=== PATIENT | male | born 1955 | race Caucasian/White ===

== ENCOUNTER 2020-04-23 09:31 | Observation (INO) | payer OTHER ==
[~2020-04-23] VITALS: Ht 175.3 cm; Wt 137.0 kg
--- NOTE | 2020-04-23 09:50 | NUR ---
PT AMBULATED BACK TO ROOM WITHOUT DIFFICULTY.
--- NOTE | 2020-04-23 09:53 | NUR ---
PATIENT WALKED BACK FROM TRIAGE WITH CHIEF C/O LEFT ARM PAIN X3-4 DAYS. PATIENT ALSO REPORTS GENERALIZED BODY ACHES X3-4 DAYS, NAUSEA X1 DAYS, AND TWO EPISODES OF CHILLS. PATIENT DENIES VOMITING AND DIARRHEA, DENIES CHEST PAIN AND DENIES SOB. EZRA NELSON, CALL LIGHT WITHIN REACH.
--- NOTE | 2020-04-23 10:00 | NUR ---
ERMD AT BEDSIDE FOR EVALUATION.
--- NOTE | 2020-04-23 11:07 | NUR ---
REPORT GIVEN TO GAVIN PATEL FOR TRANSFER OF PATIENT CARE.
--- NOTE | 2020-04-23 11:20 | NUR ---
RECEIVED REPORT FROM GAVIN CROUCH. PT RESTING ON [facility]. NADN. SCOTTS. PT CHART REVIEWED AND PLACED FOR RECHECK.
[2020-04-23] MEDS ORDERED: OXYcodone/APAP 5/325MG TABLET ONE (11:54)
[2020-04-23] MEDS ORDERED: OXYcodone/APAP 5/325MG TABLET PO ONE (12:00)
[2020-04-23] MEDS ORDERED: LOVA40TA2 PO (12:06)
[2020-04-23] MEDS ORDERED: ASPI-963 PO (12:06)
[2020-04-23] MEDS ORDERED: LISI1TAB20 PO (12:06)
[2020-04-23 12:15] LABS: BASOPHILS % (AUTO) 0 % (0-1); EOSINOPHILS % (AUTO) 1 % (1-7); LYMPHOCYTES % (AUTO) 19 % (22-44); MEAN CORPUSCULAR HEMOGLOBIN 29.6 pg (27.5-34.5); MEAN CORPUSCULAR HGB CONC 34.6 g/dL (33.2-36.2); MEAN PLATELET VOLUME 7.4 fL (7.4-10.4); MONOCYTES % (AUTO) 13 % (2-9); NEUTROPHILS % (AUTO) 67 % (42-75); PLATELET COUNT 225 x10^3/uL (130-400); RED BLOOD COUNT 5.25 x10^6/uL (4.38-5.82); RED CELL DISTRIBUTION WIDTH 13.9 % (9.4-14.8)
[2020-04-23 12:20] LABS: MD NO
[2020-04-23 12:30] LABS: ALBUMIN 3.7 g/dL (3.4-5.0); ANION GAP 9 mmol/L (5-15); CALCIUM 9.4 mg/dL (8.5-10.1); CHLORIDE 104 mmol/L (98-107)
[2020-04-23 12:33] LABS: ALANINE AMINOTRANSFERASE 22 U/L (12-78); ALKALINE PHOSPHATASE 892 U/L (45-117); BILIRUBIN,TOTAL 1.3 mg/dL (0.2-1.0); CREATININE 1.26 mg/dL (0.7-1.3); TOTAL PROTEIN 7.9 g/dL (6.4-8.2)
[2020-04-23] MEDS ORDERED: SODIUM CHLORIDE FLUSH 10ML SYR IVF PRN (13:00)
[2020-04-23] MEDS ORDERED: MORPHINE SULFATE 4 MG/ML, 1ML IVPush PRN (13:00)
[2020-04-23] MEDS ORDERED: ONDANSETRON 2MG/ML, 2ML IVPush PRN ×2 (13:00→14:30)
--- NOTE | 2020-04-23 13:07 | NUR ---
PT RESTING ON GURNEY. NADN. MUNGUIA.
--- NOTE | 2020-04-23 13:14 | NUR ---
REPORT GIVEN TO GAVIN MARQUEZ. ALL QUESTIONS ANSWERED. AWAITING PT TRANSPORT.
[2020-04-23] MEDS ORDERED: METHOCARBAMOL 500 MG TABLET PO PRN (14:30)
[2020-04-23] MEDS ORDERED: ACETAMINOPHEN 325 MG TABLET PO PRN (14:30)
[2020-04-23] MEDS ORDERED: GABAPENTIN 300 MG CAPSULE PO PRN (14:30)
[2020-04-23] MEDS ORDERED: LIDODERM 5% PATCH TD PRN (14:30)
[2020-04-23] MEDS ORDERED: ONDANSETRON ODT 4 MG PO PRN (14:30)
[2020-04-23 14:40] VITALS: BP 121/74
[2020-04-23] MEDS ORDERED: NALOXONE 1 MG/ML, 2ML ONE (14:48)
[2020-04-23] MEDS ORDERED: MIDAZOLAM 1 MG/ML, 5ML ONE (14:48)
[2020-04-23] MEDS ORDERED: FLUMAZENIL 0.1 MG/1 ML, 5ML ONE (14:48)
[2020-04-23] MEDS ORDERED: FENTANYL PF 100 MCG/2ML ONE (14:48)
[2020-04-23] MEDS: morphine SULFATE 10 MG/ML, 1ML IVPush PRN ×2 (18:21→23:42)
[2020-04-23 19:44] VITALS: BP 105/67
[2020-04-23] MEDS: OXYcodone IR 5MG TABLET PO PRN (20:20)
[2020-04-23] MEDS ORDERED: LOVASTATIN 40 MG TABLET PO SCH (21:00)
[2020-04-24 01:28] VITALS: BP 124/75
[2020-04-24] MEDS: OXYcodone IR 5MG TABLET PO PRN ×3 (01:28→14:56)
[2020-04-24 05:20] LABS: BASOPHILS % (AUTO) 1 % (0-1); EOSINOPHILS % (AUTO) 0 % (1-7); LYMPHOCYTES % (AUTO) 19 % (22-44); MEAN CORPUSCULAR HEMOGLOBIN 29.8 pg (27.5-34.5); MEAN CORPUSCULAR HGB CONC 34.9 g/dL (33.2-36.2); MEAN PLATELET VOLUME 7.3 fL (7.4-10.4); MONOCYTES % (AUTO) 16 % (2-9); NEUTROPHILS % (AUTO) 65 % (42-75); PLATELET COUNT 190 x10^3/uL (130-400); RED BLOOD COUNT 4.55 x10^6/uL (4.38-5.82); RED CELL DISTRIBUTION WIDTH 13.9 % (9.4-14.8)
[2020-04-24 05:25] LABS: MD NO
[2020-04-24 05:29] LABS: CALCIUM 8.4 mg/dL (8.5-10.1); CHLORIDE 102 mmol/L (98-107)
[2020-04-24 05:35] LABS: ALANINE AMINOTRANSFERASE 17 U/L (12-78); ALBUMIN 3.1 g/dL (3.4-5.0); ALKALINE PHOSPHATASE 662 U/L (45-117); ANION GAP 10 mmol/L (5-15); BILIRUBIN,TOTAL 1.5 mg/dL (0.2-1.0); CREATININE 1.03 mg/dL (0.7-1.3)
[2020-04-24 08:09] VITALS: BP 130/77
[2020-04-24] MEDS ORDERED: TAMSULOSIN 0.4 MG CAP.ER.24H PO SCH (09:00)
[2020-04-24 13:29] VITALS: BP 105/70
[2020-04-24] MEDS ORDERED: OXYC5TAB98 PO (15:30)
[2020-04-24] MEDS ORDERED: LIDO700A20 TD (15:30)
[2020-04-24] MEDS ORDERED: TAMS-11 PO (15:30)
== END 2020-04-24 17:00 | disposition home or self-care (01) ==
LOC: ED 10:33 → 4NW 12:36 → INTOOBSV 12:36
PROVIDERS: ADMIT Family Medicine; ATTEND Family Medicine
DX: C79.51 Secondary malignant neoplasm of bone (principal); C61 Malignant neoplasm of prostate; M25.512 Pain in left shoulder; M25.551 Pain in right hip; R74.8 Abnormal levels of other serum enzymes; I25.10 Atherosclerotic heart disease of native coronary artery without angina pectoris; I10 Essential (primary) hypertension; E78.5 Hyperlipidemia, unspecified; Z79.82 Long term (current) use of aspirin; Z79.899 Other long term (current) drug therapy; E78.00 Pure hypercholesterolemia, unspecified; Z87.891 Personal history of nicotine dependence; Z95.5 Presence of coronary angioplasty implant and graft
CPT/HCPCS: 20220; 36415; 71046; 73030; 73060; 77012; 78306; 80053; 84153; 85025; 88305; 88311; 93005; 96374; 96376; 99156; 99157; 99285; A9503; G0378; J2250; J2270; J3010; G0103; J2310

== ENCOUNTER 2020-04-27 | Emergency (ER) | payer OTHER ==
[~2020-04-27] VITALS: Ht 175.3 cm; Wt 135.2 kg
[~2020-04-27] MED LIST: ASPI-963 PO; LIDO700A20 TD; LISI1TAB20 PO; LOVA40TA2 PO; OXYC5TAB98 PO; TAMS-11 PO
[2020-04-27 00:54] LABS: BASOPHILS % (AUTO) 0 % (0-1); EOSINOPHILS % (AUTO) 2 % (1-7); LYMPHOCYTES % (AUTO) 28 % (22-44); MEAN CORPUSCULAR HEMOGLOBIN 29.7 pg (27.5-34.5); MONOCYTES % (AUTO) 10 % (2-9); NEUTROPHILS % (AUTO) 60 % (42-75); PLATELET COUNT 258 x10^3/uL (130-400); RED CELL DISTRIBUTION WIDTH 13.6 % (9.4-14.8)
--- NOTE | 2020-04-27 00:54 | NUR ---
PT. TO ED WITH C/O INABILITY TO URINATE X 3 HOURS. PT. REPORTS 8/10 PAIN. BLADDER SCAN COMPLETED AND SHOWED 349ML URINE IN BLADDER. MARIA ESTHER GONCALVES IN TO EVAL PT. AND DISCUSS POC. NEW ORDERS FOR TELLEZ PLACEMENT. TELLEZ PLACED WITH EASE AND PT. TOLERATED WELL. URINE SAMPLE COLLECTED AND WALKED TO LAB. IMMEDIATE RETURN OF 850ML GONSALO URINE. REPORT TO GAVIN HATFIELD TO ASSUME CARE OF PT.
[2020-04-27 00:55] LABS: MD NO
[2020-04-27 01:01] LABS: MICROSCOPIC NOT IND
[2020-04-27 01:02] LABS: ALBUMIN 2.9 g/dL (3.4-5.0); ANION GAP 11 mmol/L (5-15); CALCIUM 8.5 mg/dL (8.5-10.1); CHLORIDE 107 mmol/L (98-107); CREATININE 1.01 mg/dL (0.7-1.3)
--- NOTE | 2020-04-27 01:20 | NUR ---
ASSUMED CARE OF PT, WARM BLANKET PROVIDED, PT IN NAD AT THIS TIME
--- NOTE | 2020-04-27 01:54 | NUR ---
REPORT TO PATO
[2020-04-27 01:55] VITALS: BP 134/71
--- NOTE | 2020-04-27 02:50 | NUR ---
PT PROVIDED A URINE FOLLEY LEG BAG
== END 2020-04-27 02:52 | disposition home or self-care (01) ==
LOC: ED 01:14
DX: R39.15 Urgency of urination (principal); R30.0 Dysuria; I10 Essential (primary) hypertension; I25.10 Atherosclerotic heart disease of native coronary artery without angina pectoris
CPT/HCPCS: 36415; 51702; 80048; 81003; 82040; 85025; 99284

== ENCOUNTER → 2020-05-05 | Outpatient (CLI) | payer OTHER ==
[~2020-05-05] MED LIST changes: +OMNIPAQUE 350 MG/ML, 100ML BOTTLE ONE
== END | disposition home or self-care (01) ==
LOC: RAD 13:09
PROVIDERS: ATTEND Urology
DX: C79.51 Secondary malignant neoplasm of bone (principal); C61 Malignant neoplasm of prostate; N40.0 Benign prostatic hyperplasia without lower urinary tract symptoms
CPT/HCPCS: 71260; 74177; Q9967

== ENCOUNTER 2020-05-14 07:12 | Outpatient (CLI) | payer OTHER ==
[~2020-05-14 07:12] MED LIST changes: -OMNIPAQUE 350 MG/ML, 100ML BOTTLE ONE
== END 2020-05-14 23:59 | disposition home or self-care (01) ==
LOC: ROC 07:12
PROVIDERS: ATTEND Radiology Radiation Oncology
DX: C61 Malignant neoplasm of prostate (principal); C79.51 Secondary malignant neoplasm of bone; I10 Essential (primary) hypertension; I25.10 Atherosclerotic heart disease of native coronary artery without angina pectoris; E78.5 Hyperlipidemia, unspecified; E78.00 Pure hypercholesterolemia, unspecified; Z79.82 Long term (current) use of aspirin; Z79.899 Other long term (current) drug therapy; Z87.891 Personal history of nicotine dependence; Z95.5 Presence of coronary angioplasty implant and graft
CPT/HCPCS: 99214; G0463

== ENCOUNTER → 2020-08-16 | Outpatient (CLI) | payer OTHER ==
[2020-08-16 14:42] LABS: ALANINE AMINOTRANSFERASE 23 U/L (12-78); ALBUMIN 3.7 g/dL (3.4-5.0); ANION GAP 8 mmol/L (5-15); CHLORIDE 106 mmol/L (98-107); CHOLESTEROL, TOTAL 232 mg/dL (140-239); CREATININE 0.92 mg/dL (0.7-1.3)
[2020-08-16 14:47] LABS: ALKALINE PHOSPHATASE 257 U/L (45-117); BILIRUBIN,TOTAL 0.5 mg/dL (0.2-1.0); CHOL/HDL RATIO 7.7; HDL CHOL % 13 % (26-37); HDL CHOLESTEROL (DIRECT) 30 mg/dL (40-60); LDL CHOLESTEROL,CALCULATED 144 mg/dL (54-169); LDL/HDL RATIO 4.8 (0.5-3.0); TOTAL PROTEIN 7.2 g/dL (6.4-8.2); TRIGLYCERIDES 288 mg/dL (50-200); VLDL CHOLESTEROL 58 mg/dL (0-25)
== END | disposition home or self-care (01) ==
LOC: LAB 14:11
PROVIDERS: ATTEND Physician Assistant
DX: C61 Malignant neoplasm of prostate (principal)
CPT/HCPCS: 36415; 80053; 80061; 84153; 84403; G0103